=== PATIENT | male | born 1955 | race Caucasian/White ===

== ENCOUNTER 2018-10-31 07:55 | Outpatient (CLI) | payer BC | END 2018-10-31 23:59 | disposition home or self-care (01) | LOC: CFH 07:55 | PROVIDERS: ATTEND Internal Medicine | DX: I08.1 Rheumatic disorders of both mitral and tricuspid valves (principal); I10 Essential (primary) hypertension; I25.2 Old myocardial infarction; I42.9 Cardiomyopathy, unspecified; E78.5 Hyperlipidemia, unspecified; Z95.5 Presence of coronary angioplasty implant and graft | CPT/HCPCS: 93306 ==